=== PATIENT | male | born 1960 | race Caucasian/White ===

== ENCOUNTER 2023-10-09 08:55 | Outpatient (CLI) | payer BC, SELFPAY ==
--- NOTE | 2023-10-09 09:00 | MR_ITS ---
WS: [id number] MRI CERVICAL SPINE NONCONTRAST TECHNIQUE: Sagittal T1, T2 and STIR imaging. Axial T2, gradient, and fiesta imaging. CLINICAL INFORMATION: SEVERE CERVICAL SPONDYLOSIS/DYSESTHESIA COMPARISON: None. FINDINGS: Straightening of the normal cervical lordosis. Mild disc bulging worse at C3-C4 C5-C6 and C6-C7 with slight indentation of the cervical cord at C5-C6 and C6-C7. Moderate central canal stenosis at C5-C6 and moderate C6-C7. C2-C3: Mild facet arthropathy. Spinal canal and foramen are patent. C3-C4: Mild disc bulge with endplate ridging. Moderate RIGHT and mild LEFT bony foraminal narrowing. Mild arthropathy. Mild central canal stenosis. C4-C5: Disc osteophyte complex with endplate ridging. Mild central canal stenosis. Moderate facet art hropathy. Foramen are patent. C5-C6: Disc osteophyte protrusion with indentation and slight flattening of the cervical cord. Modera te central canal stenosis. Moderate to severe bilateral bony foraminal narrowing. C6-C7: Disc osteophyte protrusion with slight indentation of the cervical cord. Mild to moderate cent ral canal stenosis. Severe LEFT and moderate RIGHT bony foraminal narrowing. Mild facet arthropathy. C7-T1: No significant disc bulging. Spinal canal and foramina are patent. Tiny RIGHT paracentral protrusion at T1-2 with mild RIGHT foraminal narrowing.. Visualized brain stem structures: Normal. Prevertebral soft tissues: Normal. MR/MR cervical spin wo con* [id number] IMPRESSION: 1. Straightening of the normal cervical lordosis. 2. Disc osteophyte complex with moderate central canal stenosis C5-C6 with sli ght indentation and flattening of the cervical cord. 3. Mild to moderate central canal stenosis C6-7. Mild central canal stenosis C 3-4. 4. Severe bilateral C5-C6 bony foraminal narrowing. 5. Severe LEFT C6-7 bony foraminal narrowing 6. Mild RIGHT facet synovitis C3-4 and C4-5.
== END 2023-10-09 08:56 | disposition home or self-care (01) ==
LOC: RAD 08:55
PROVIDERS: Visit Provider Internal Medicine
DX: M47.812 Spondylosis without myelopathy or radiculopathy, cervical region (principal); R20.8 Other disturbances of skin sensation; R90.89 Other abnormal findings on diagnostic imaging of central nervous system; M25.78 Osteophyte, vertebrae; M48.02 Spinal stenosis, cervical region; M65.9 Synovitis and tenosynovitis, unspecified; M50.31 Other cervical disc degeneration, high cervical region; M50.222 Other cervical disc displacement at C5-C6 level; M50.223 Other cervical disc displacement at C6-C7 level; M48.04 Spinal stenosis, thoracic region
CPT/HCPCS: 72141